=== PATIENT | male | born 1995 | race Hispanic/Latino ===

== ENCOUNTER 2017-12-07 13:41 | Emergency (ER) | payer OTHER ==
[2017-12-07] MEDS: KETOROLAC 60 MG/2 ML VIAL (J1885) IM ×2 (16:24)
== END 2017-12-07 16:44 | disposition home or self-care (01) ==
LOC: M ED 13:41
DX: M46.1 Sacroiliitis, not elsewhere classified (principal)
CPT/HCPCS: J1885

== ENCOUNTER 2018-03-28 19:52 | Emergency (ER) | payer OTHER ==
[~2018-03-28] VITALS: Ht 182.9 cm; Wt 102.3 kg
[~2018-03-28 19:52] MED LIST: CYCL5TAB PO; IBUP-1022 PO; IBUP80TA PO; PERC5TAB12 PO; ROBA500T PO
--- NOTE | 2018-03-28 20:42 | REP ---
Clinical: Trauma. Technique: AP, lateral, bilateral oblique views right hand . Findings: No definite acute fractures appreciated. However, correlation is required to exclude a very small corner fracture at the base of the second digit proximal phalanx identified on oblique image number 3 of 4. Remainder examination appears normal. Impression: No definite acute fracture or dislocation. However correlation is required to exclude a very subtle injury at the corner be base of the second digit proximal phalanx. Electronically Signed by Ismael Gavin MD 03/28/2018 08:34 P
--- NOTE | 2018-03-28 20:44 | REP ---
Clinical: Trauma. Technique: AP, lateral, bilateral oblique views right wrist. Findings: The carpal bones, surrounding osseous structures, soft tissues, and joint spaces are normal. There is no evidence for acute fracture or dislocation. No subcutaneous emphysema or radiodense foreign body. Impression: Normal wrist series. No acute fracture or dislocation Electronically Signed by Ismael Gavin MD 03/28/2018 08:35 P
[2018-03-28 22:03] VITALS: BP 126/68
== END 2018-03-28 22:20 | disposition home or self-care (01) ==
LOC: M ED 19:52
DX: S60.221A Contusion of right hand, initial encounter (principal); S63.502A Unspecified sprain of left wrist, initial encounter; Y92.009 Unspecified place in unspecified non-institutional (private) residence as the place of occurrence of the external cause; W22.8XXA Striking against or struck by other objects, initial encounter

== ENCOUNTER 2018-04-20 14:07 | Emergency (ER) | payer OTHER ==
[~2018-04-20] VITALS: Ht 182.9 cm; Wt 100.0 kg
[2018-04-20] MEDS ORDERED: KETOROLAC 30 MG/ML VIAL (J1885) IM ONE (14:30)
--- NOTE | 2018-04-20 14:46 | REP ---
CT Head without contrast HISTORY: Trauma COMPARISON: None There is no intraparenchymal hemorrhage, acute infarct, mass or midline shift. The ventricular system is normal in appearance. There is no extra cerebral collection. There is no fracture. The visualized sinuses are clear. IMPRESSION: There is no intracranial lesion. Electronically Signed by Delon Eng MD 04/20/2018 02:38 P
--- NOTE | 2018-04-20 14:50 | REP ---
CT cervical spine without contrast HISTORY: Trauma COMPARISON: None There is no acute fracture or subluxation. There is no disc bulge or herniation. The spinal canal and neural foramina are patent. The intervertebral discs and vertebral bodies are normal in height. IMPRESSION: There is no acute fracture or subluxation. Electronically Signed by Delon Eng MD 04/20/2018 02:41 P
--- NOTE | 2018-04-20 16:27 | REP ---
RIGHT WRIST, FOUR VIEWS: HISTORY: Trauma. COMPARISON: 03/28/2018 There is no acute fracture or dislocation. The joint spaces are normal in appearance. IMPRESSION: There is no acute fracture or dislocation. Electronically Signed by Delon Eng MD 04/20/2018 04:37 P
--- NOTE | 2018-04-20 16:34 | REP ---
LUMBAR SPINE, FIVE VIEWS: HISTORY: Trauma. There is no acute fracture or subluxation. The L4-5 intervertebral disc is decreased in height consistent with disc degeneration. The facet joints are normal in appearance. There are 5 mm of retrolisthesis of L5 on S1. IMPRESSION: Degenerative change as described above. Electronically Signed by Delon Eng MD 04/20/2018 04:37 P
--- NOTE | 2018-04-20 16:38 | REP ---
Right hand series: Four views. History: Trauma. Comparison study March 28, 2018. Findings: Overall mineralization pattern is normal. There is a small spur or exostosis at the base of the proximal phalanx of the index finger along its radial side, unchanged from March 28, 2018. This does not have the appearance of an acute injury. No acute fracture or subluxation is seen. Bones, joints and soft tissues are otherwise unremarkable. Impression: Small exostosis or spur seen along the radial aspect of the base of the proximal phalanx of the index finger at the MCP joint, unchanged. There is no evidence of acute fracture or subluxation. Electronically Signed by Andrea Baptiste MD 04/20/2018 05:28 P
[2018-04-20 16:56] VITALS: BP 140/78
--- NOTE | 2018-04-23 11:06 | ED PDOC ---
Post-Departure Follow-Up ft maryjo mcneil faxed formal report of ls spine film for fu Jonas Rios MD Apr 23, 2018 11:06
== END 2018-04-20 16:56 | disposition home or self-care (01) ==
LOC: M ED 14:07 → EDBD 14:07 → M ED 16:56
DX: S06.0X0A Concussion without loss of consciousness, initial encounter (principal); S16.1XXA Strain of muscle, fascia and tendon at neck level, initial encounter; T14.8XXA Other injury of unspecified body region, initial encounter; V49.49XA Driver injured in collision with other motor vehicles in traffic accident, initial encounter; Y92.410 Unspecified street and highway as the place of occurrence of the external cause
CPT/HCPCS: 70450; 72110; 72125; 73110; 73130; 96372; 99284; J1885